=== PATIENT | male | born 1960 | race Asian ===

== ENCOUNTER 2021-06-11 07:38 | Emergency (ER) | payer OTHER, SELFPAY ==
[~2021-06-11] VITALS: Ht 165.1 cm; Wt 54.0 kg
--- NOTE | 2021-06-11 07:38 | NUR ---
PT BIBA AT 0730 FOR DIFFICULTY SPEAKING, CONFUSION AND UNSTEADY GAIT SINCE 0630 WHEN FAMILY NOTICED. PT PRESENTS AWAKE AND ALERT BUT PT IS CONFUSED AND UNABLE TO VERBALIZE COMPREHENSIVELY. HYPERTENSIVE UPON ARRIVAL 126/105, OTHER V/S STABLE.
--- NOTE | 2021-06-11 07:38 | NUR ---
0229 DR. GANNON EXAMINING PT IN [facility]
[2021-06-11 07:40] VITALS: BP_SYST 126
--- NOTE | 2021-06-11 07:40 | NUR ---
PT TO CT ACCOMPANIED BY STAFF
--- NOTE | 2021-06-11 07:47 | NUR ---
TELE NEURO CALLED
--- NOTE | 2021-06-11 07:56 | NUR ---
# 18 gauge angiocath placed to LAC. Use of asceptic technique. Opsite placed over site. Blood return noted. Blood for lab drawn from site. Flushed with 10 cc of normal saline. No evidence of infiltration noted. Patient tolerated well.
--- NOTE | 2021-06-11 08:05 | NUR ---
COVID SWAB DONE AND SENT TO LAB
[2021-06-11 08:09] LABS: BASOPHILS % (AUTO) 0.8 % (0.0-2.0); EOSINOPHILS # (AUTO) 0.6 K/uL (0.0-0.4); HEMATOCRIT 46.3 % (36-54); HEMOGLOBIN 15.5 g/dL (14.0-18.0); LYMPHOCYTES # (AUTO) 1.1 K/uL (1.0-5.5); LYMPHOCYTES % (AUTO) 22.2 % (20.5-51.5); MEAN CORPUSCULAR HEMOGLOBIN 31 pg (27-31); MEAN CORPUSCULAR HGB CONC 34 % (32-36); MEAN CORPUSCULAR VOLUME 91 fL (79.0-98.0); MONOCYTES # (AUTO) 0.5 K/uL (0.0-1.0); MONOCYTES % (AUTO) 9.3 % (1.7-9.3); NEUTROPHILS # (AUTO) 2.7 K/uL (1.8-7.7); NEUTROPHILS % (AUTO) 55.7 % (40.0-70.0); PLATELET COUNT (AUTO) 148 K/uL (130-430); RED BLOOD CELL COUNT(AUTO) 5.08 MIL/uL (4.2-6.2); RED CELL DISTRIBUTION WIDTH 14.5 % (9.0-15.0); WHITE BLOOD COUNT (AUTO) 4.9 K/uL (4.8-10.8)
--- NOTE | 2021-06-11 08:13 | NUR ---
TELE NEURO SPEAKING WITH PT
[2021-06-11] MEDS ORDERED: ASPIRIN 325 MG TABLET (ECOTRIN) PO ONE ×2 (08:15→08:16)
[2021-06-11 08:23] LABS: CALCIUM 8.7 mg/dL (8.4-11.0); CREATININE 1.14 mg/dL (0.55-1.30); POTASSIUM 4.1 mmol/L (3.5-5.1)
[2021-06-11 08:32] LABS: PROTHROMBIN TIME 10.8 SECS (9.5-12.5)
[2021-06-11 08:33] LABS: ALBUMIN 3.7 g/dL (3.4-4.8); TOTAL BILIRUBIN 0.6 mg/dL (0.0-1.0)
[2021-06-11] MEDS ORDERED: DILTIAZEM HCL 60 MG TABLET PO ONE (08:45)
[2021-06-11] MEDS ORDERED: dilTIAZem HCL IVP 5 MG/ML VIAL IVP ONE (08:45)
--- NOTE | 2021-06-11 09:45 | NUR ---
Dr. Salter, [facility] doc, called back to speak to Dr. Beltre regarding pt status.
--- NOTE | 2021-06-11 09:54 | NUR ---
Tho, [facility], stated that ED has accepted pt. Asked about if Dr. Valle will have peer to peer call regarding pt status, they declined to speak with Dr. valle per Tho. Tho stated she will call [facility] and get eta.
--- NOTE | 2021-06-11 10:01 | NUR ---
TRANSFER INFO [facility] ED Dr. Franco MEDINA 30-40 minutes spoke to yobani
--- NOTE | 2021-06-11 10:05 | NUR ---
# FOR REPORT: [phone] or [phone] SPOKE TO SOLO
[2021-06-11 10:09] LABS: BILIRUBIN,URINE NEGATIVE (NEGATIVE); BLOOD, URINE NEGATIVE (NEGATIVE); CLARITY/URINE CLEAR (CLEAR); COLOR,URINE YELLOW (YELLOW); GLUCOSE,URINE NEGATIVE (NEGATIVE); KETONES,URINE NEGATIVE (NEGATIVE); LEUKOCYTE ESTERASE ,URINE NEGATIVE (NEGATIVE); NITRITE, URINE NEGATIVE (NEGATIVE); PROTEIN URINE NEGATIVE (NEGATIVE); UROBILINOGEN,URINE 0.2 (0.2-1.0)
[2021-06-11 10:18] VITALS: BP_SYST 124
--- NOTE | 2021-06-11 10:18 | NUR ---
Patient to be transferred to [facility]. Is being transferred due to higher level of care. Receiving facility has accepting physician and available space. ER physician has signed transfer form. Patient or responsible libertarian has agreed to transfer and signed form. Patient belongings inventoried and will be sent with patient. Copy of nursing notes, lab reports, EKG, Physicians Orders and X-rays to be sent with patient. Report called to AFSHIN at receiving facility. Receiving physician is DR. ARROYO. [facility] ambulance service has been called for transfer. ETA is 1030.
== END 2021-06-11 10:18 | disposition short-term general hospital (02) ==
LOC: SED 07:38
DX: I63.9 Cerebral infarction, unspecified (principal); I48.20 Chronic atrial fibrillation, unspecified
CPT/HCPCS: 36415; 70450; 70496; 70498; 71045; 76376; 80053; 81003; 83605; 83880; 84484; 85025; 85610; 85730; 93005; 96374; 99291; J3490; Q9967